=== PATIENT | female | born 1990 | race Caucasian/White ===

== ENCOUNTER 2024-02-02 09:34 | Emergency (ER) | payer SELFPAY ==
[~2024-02-02] VITALS: Ht 162.6 cm; Wt 90.0 kg
[~2024-02-02 09:34] MED LIST: FLEXERIL 1010 MG/TAB PO; NAPROSYN500 MG PO
[2024-02-02 09:43] VITALS: BP 129/88; TEMP 98.7
[2024-02-02] MEDS ORDERED: ZOFRAN ODT4 MG PO (10:45)
[2024-02-02 10:52] VITALS: PULSE 85
== END 2024-02-02 10:54 | disposition home or self-care (01) ==
LOC: COL.ER 09:34
DX: B34.9 Viral infection, unspecified (principal); R11.2 Nausea with vomiting, unspecified; R50.9 Fever, unspecified; R19.7 Diarrhea, unspecified; R10.10 Upper abdominal pain, unspecified; Z87.19 Personal history of other diseases of the digestive system

== ENCOUNTER 2024-04-25 10:04 | Emergency (ER) | payer SELFPAY ==
[~2024-04-25] VITALS: Ht 160 cm; Wt 90.0 kg
[~2024-04-25 10:04] MED LIST changes: +ZOFRAN ODT4 MG PO
[2024-04-25 10:09] VITALS: TEMP 98.3
[2024-04-25] MEDS ORDERED: NS 1,000 ML IV ONE ×2 (11:15)
[2024-04-25] MEDS ORDERED: diphenhydrAMINE 50 MG/ML 1 ML VIAL IV ONE (11:15)
[2024-04-25] MEDS ORDERED: Ketorolac 30 MG/ML VIAL IV ONE (11:15)
[2024-04-25 13:07] VITALS: BP 119/79; PULSE 82
== END 2024-04-25 13:12 | disposition home or self-care (01) ==
LOC: COL.ER 10:04
DX: G43.909 Migraine, unspecified, not intractable, without status migrainosus (principal); F17.290 Nicotine dependence, other tobacco product, uncomplicated
CPT/HCPCS: J0780; J1200; J1885; J7030